=== PATIENT | male | born 1970 | race Caucasian/White ===

== ENCOUNTER 2020-03-10 15:22 | Emergency (ER) | payer BC, SELFPAY ==
[2020-03-10 15:31] VITALS: BP 100/63; PULSE 60; RESP 16; TEMP 36.5; O2SAT 97
[2020-03-10] MEDS: Bupivacaine 0.5% Pres-Free 30 ML VIAL IJ (16:20)
--- NOTE | 2020-03-10 16:30 | W.ED.GENAD ---
Discharge Plan Disposition Patient Disposition: HOME Condition: Good Discharge Details Chief Complaint: Orthopedic Clinical Impression: Crushing injury of left little finger, initial encounter Primary Care Provider: Stephanie,Local ED Provider: Martin Case and New Rx's Prescriptions: New cephalexin 500 mg tablet 500 mg PO Q8H Qty: 20 RF: 0 Continued cetirizine [Zyrtec] 10 mg tablet 10 mg PO DAILY RF: 0 omeprazole 40 MG capsule,delayed release(DR/EC) 40 mg PO DAILY RF: 0 Discharge Instructions Additional Instructions: Leave this dressing in place for 2 days. Keep hand elevated. Alternate acetaminophen with ibuprofen for pain. Take antibiotic as directed. In 2 days remove dressing. You may need to soak the finger to get the Gelfoam off. Be careful not to disrupt clot or healing. Redress and keep dry and clean. You will need follow-up with orthopedics or plastics for definitive repair of finger. Watch for signs of infection and return to ED if you notice increasing pain, swelling, redness. Referrals: [facility] [Provider Group] Discharge Data Discharge Date/Time-TO BE ENTERED AT DEPARTURE: 03/10/20 19:20 Medical Decision Making A digital nerve block had been performed by nurse practitioner Ngoc prior to my seeing the patient and being sent to radiology. At the time of my evaluation nerve block has completely set and he has no pain. He has normal range of motion. His injury is involving only the tip of the little finger. X-ray confirms a comminuted fracture of the tuft. No other fractures noted. Wound was irrigated with copious amounts of saline by me. Some debridement carried out. No bone exposure. After debridement there was some significant bleeding that was not easily controlled with pressure. Bovie was used to cauterize the tip. Gelfoam applied. Xeroform dressing applied. No bleeding noted. Patient started on cephalexin. He is to keep the dressing in place for the next 2 days. He will need follow-up with Ortho or plastics for reevaluation and consideration of flap although given no bony exposure may be just as well to let granulate in and heal. Patient is from [place]. He is given [facility] orthopedic information for follow-up if he decides to stay in the area longer than he had planned. Otherwise will need to find follow-up in [place] when he returns home. HPI General Mode of arrival: ambulatory. Date/Time Provider Initiated Documentation: 03/10/20 15:59. Limitations to Documentation: no limitations. Information obtained by: patient and RN notes reviewed. HPI Narrative: Patient presents to ED with left little finger injury. Patient is right-hand dominant. Patient was splitting wood with wood splitter. He is not exactly sure what happened but it jammed and at some point the tip of his little finger was crushed. He denies other injury. Bleeding is controlled. Tetanus is up-to-date. Presents to ED for evaluation. Related Data Home Medications Medication Instructions Recorded Confirmed omeprazole 40 mg PO DAILY 08/02/17 03/10/20 cephalexin 500 mg PO Q8H #20 tab 03/10/20 cetirizine [Zyrtec] 10 mg PO DAILY 03/10/20 03/10/20 Previous Rx's Medication Instructions Recorded cephalexin 500 mg PO Q8H #20 tab 03/10/20 Allergies Allergy/AdvReac Type Severity Reaction Status Date / Time egg AdvReac Mild Unverified 03/10/20 15:37 General Stated Complaint: Orthopedic LIBERTY: 3 Review of Systems Constitutional Constitutional: Denies fever(s) Cardiovascular Cardiovascular: Denies dyspnea Respiratory Respiratory: Denies cough and Denies dyspnea PFSH Medical History GERD (gastroesophageal reflux disease) (Chronic) Surgical History S/P appendectomy (Acute) Social History Smoking/Tobacco Use Status: Never Alcohol Intake: current Alcohol Intake frequency: holidays/special occasions only Drug use: Never Do you feel safe at home: Yes Do you feel safe in your relationship?: Yes Exam Const General: cooperative, comfortable and no acute distress Orientation: alert and oriented x3 HENMT Head: normocephalic and atraumatic Neck Neck: trachea midline and supple Resp Effort & Inspection: normal respiratory effort Extrem Other: Left little finger with amputation of the very tip. Nail almost completely gone except for the very proximal piece which is still within the cuticle. Nailbed somewhat disrupted. Course Vital Signs Vital signs: Vital Signs Temperature 97.7 F 03/10/20 15:31 Pulse 60 03/10/20 15:31 Respiratory Rate 16 03/10/20 15:31 Blood Pressure 100/63 03/10/20 15:31 Pulse Oximetry 97 03/10/20 15:31 Temperature 97.7 F 03/10/20 15:31 Temperature Source Temporal Artery Scan 03/10/20 15:31 Pulse 60 03/10/20 15:31 Respiratory Rate 16 03/10/20 15:31 Respiratory Effort Non-Labored 03/10/20 15:36 Blood Pressure 100/63 03/10/20 15:31 Blood Pressure Position Sitting 03/10/20 15:31 Pulse Oximetry 97 03/10/20 15:31 Oxygen Delivery Method Room Air 03/10/20 15:31 Oxygen Flow Rate 0 03/10/20 15:31 Pain Level 4 03/10/20 15:40
--- NOTE | 2020-03-10 16:31 | W.ED.PROC ---
Date of service: 03/10/20 Time of Service: 16:31 Procedures Nerve Block Nerve Block 1: Time out performed: No Local Anesthetic: Lidocaine 1% and Bupivicaine 0.5% Amount of anesthesia used (mL): 5 Side: left Nerve Blocks: digital (ring block base of 5th finger)
--- NOTE | 2020-03-10 17:20 | DI.RAD_ITS ---
EXAM: XR FINGER LT LITTLE CLINICAL HISTORY: Crush injury TECHNIQUE: COMPARISON: No exams were available for comparison FINDINGS: Three views were obtained. There is a comminuted moderately displaced fracture of the tuft of distal phalanx of the little finger with associated soft tissue defect. No additional fracture seen. IMPRESSION: RADIATION DOSE DELIVERED: Total DLP
--- NOTE | 2020-03-10 17:51 | DI.VRAD_ITS ---
PROCEDURE INFORMATION: Exam: XR Left Finger(s) Exam date and time: 03/10/2020 5:29 PM Age: 49 years old Clinical indication: Other: Crush injury TECHNIQUE: Imaging protocol: XR Left fingers. Views: Minimum 2 views. COMPARISON: No relevant prior studies available. FINDINGS: Bones/joints: There is a comminuted fracture at the tuft of the little finger distal phalanx. No other acutely displaced fractures are appreciated. No dislocation. No aggressive osseous lesions. Soft tissues: Soft tissue laceration at the tip of the little finger. IMPRESSION: Comminuted fracture at the tuft of the little finger distal phalanx with associated soft tissue laceration. Dictated and Authenticated by: Mehrdad Tolentino MD. Ordering:KARINA Smith MD
[2020-03-10] MEDS: Gelatin SPONGE 12-7 MM PKT 1 EACH TP (19:00)
== END 2020-03-10 19:20 | disposition home or self-care (01) ==
PROVIDERS: Emergency Provider Emergency Medicine
DX: S67.197A Crushing injury of left little finger, initial encounter (principal); S62.637A Displaced fracture of distal phalanx of left little finger, initial encounter for closed fracture; W31.89XA Contact with other specified machinery, initial encounter
CPT/HCPCS: 26750; 73140

== ENCOUNTER 2020-05-16 10:17 | Emergency (ER) | payer BC, SELFPAY ==
[2020-05-16 10:21] VITALS: BP 134/76; PULSE 84; RESP 22; TEMP 37.2; O2SAT 98
--- NOTE | 2020-05-16 10:30 | DI.RAD_ITS ---
EXAM: XR PORTABLE CHEST AP CLINICAL HISTORY: Fever, PUI TECHNIQUE: COMPARISON: No exams were available for comparison FINDINGS: Heart is not enlarged. There are patchy areas of increased intrapulmonary radiodensity in the right mid lung to right lung base. Left lung is grossly clear. Upper right lung zone appears clear. No p leural effusion seen on this frontal film. Slight elevation of the diaphragm noted on the right. IMPRESSION: Consistent with right sided pneumonia. Appropriate follow-up films requested. RADIATION DOSE DELIVERED: Total DLP
--- NOTE | 2020-05-16 10:38 | ED.GENADUL_ITS ---
Discharge Plan Disposition Patient Disposition: HOME Condition: Stable Discharge Details Clinical Impression: Community acquired pneumonia of right lower lobe of lung, Leukopenia Primary Care Provider: StephanieLocal ED Provider: Sarah Grossman Home Meds and New Rx's Prescriptions: New doxycycline hyclate 100 mg capsule 100 mg PO BID 7 Days Qty: 14 RF: 0 Continued cetirizine [Zyrtec] 10 mg tablet 10 mg PO DAILY RF: 0 omeprazole 40 MG capsule,delayed release(DR/EC) 40 mg PO DAILY RF: 0 No Action cephalexin 500 mg tablet 500 mg PO Q8H Qty: 20 RF: 0 Discharge Instructions Instructions: Community Acquired Pneumonia (ED) Additional Instructions: Follow up with primary care provider in 3-5 days. Return to ED sooner if any worsening or concerns. Increase oral fluids. Please take Tylenol or Ibuprofen with food every 4-6 hours as needed for pain and swelling. Take doxycycline as prescribed twice a day. Your Covid test and Lyme panel is pending at this time. Doxycycline will treat Lyme disease if this comes back positive as well. Continue to quarantine until Covid result is negative. Chest x-ray shows possible right lower lobe pneumonia. Your white blood cell count is low, the level was 2.4, you do need to follow-up with primary care regarding this and have it rechecked. This could be due to a viral illness but needs to be looked into further. Stand Alone Forms: PENDING COVID-19 TESTING Medical Decision Making 50-year-old male presents to the ED with flulike symptoms for approximately 9 days. He is from [place], he was tested a week ago on Thursday and again on Thursday for Covid which were both negative. He does report having contact with a friend who was tested positive for Covid. He reports myalgias, fever, chills, diarrhea and loose stools for approximately 9 days. He is here concerned because he does not feel any better. He denies any vomiting, chest pain or difficulty breathing. He did take Advil at 3:00 this morning. He has tried [id number] cold and flu medications with little to no help. EXAM: XR PORTABLE CHEST AP CLINICAL HISTORY: Fever, PUI TECHNIQUE: COMPARISON: No exams were available for comparison FINDINGS: Heart is not enlarged. There are patchy areas of increased intrapulmonary radiodensity in the right mid lung to right lung base. Left lung is grossly clear. Upper right lung zone appears clear. No pleural effusion seen on this frontal film. Slight elevation of the diaphragm noted on the right. IMPRESSION: Consistent with right sided pneumonia. Appropriate follow-up films requested. Discussed lab results and x-ray results with patient who verbalizes understanding. Discussed continue quarantine. Pending Covid test. CBC is largely unremarkable white blood cell count 2.4, platelet count 118, sodium is 135, potassium 4.1, BUN 14, creatinine 1.19, GFR greater than 60. I will discuss his white blood cell count with patient and encouraged follow-up with PCP. Will give first dose of antibiotics here in department will give doxycycline to cover for pneumonia and patient's concern for Lyme disease. HPI General Mode of arrival: ambulatory . Date/Time Provider Initiated Documentation: 05/16/20 10:17 . Limitations to Documentation: no limitations . Information obtained by: patient . HPI Narrative: 50-year-old male presents to the ED with flulike symptoms for approximately 9 days. He is from [place], he was tested a week ago on Thursday and again on Thursday for Covid which were both negative. He does report having contact with a friend who was tested positive for Covid. He reports myalgias, fever, chills, diarrhea and loose stools for approximately 9 days. He is here concerned because he does not feel any better. He denies any vomiting, chest pain or difficulty breathing. He did take Advil at 3:00 this morning. He has tried [id number] cold and flu medications with little to no help. Related Data Home Medications Medication Instructions Recorded Confirmed omeprazole 40 mg PO DAILY 08/02/17 05/16/20 cephalexin 500 mg PO Q8H #20 tab 03/10/20 05/16/20 cetirizine [Zyrtec] 10 mg PO DAILY 03/10/20 05/16/20 doxycycline hyclate 100 mg PO BID 7 Days #14 cap 05/16/20 Previous Rx's Medication Instructions Recorded cephalexin 500 mg PO Q8H #20 tab 03/10/20 doxycycline hyclate 100 mg PO BID 7 Days #14 cap 05/16/20 Allergies Allergy/AdvReac Type Severity Reaction Status Date / Time egg AdvReac Mild Unverified 05/16/20 10:28 General Stated Complaint: Fever LIBERTY: 3 Review of Systems Narrative: Constitutional: Negative for weight loss, alert and oriented, well groomed, normal body habitus, appears comfortable. Positive myalgias, chills, fatigue and fever. HEENT: Denies trauma, headaches, blurry vision, nasal discharge, sore throat, trouble swallowing. Chest: Denies chest pain, palpitations, irregular rhythm, hypertension. Respiratory: Denies Shortness of breath, cough, hemoptysis. GI: Denies abdominal pain, nausea, vomiting, constipation. Positive diarrhea. : Denies dysuria, hematuria, flank pain, rectal bleeding. Neuro: Denies dizziness, blurry vision, weakness, syncope, headache or facial numbness. Hematologic: Denies easy bruising, intolerance to heat or cold, hair loss. [facility] Medical History GERD (gastroesophageal reflux disease) Surgical History S/P appendectomy Social History Smoking/Tobacco Use Status: Never Smoking risk assessment performed?: Yes Alcohol Intake: current Alcohol Intake frequency: holidays/special occasions only Drug use: Never Substance use type: does not use Do you feel safe at home: Yes Do you feel safe in your relationship?: Yes Exam Narrative Exam Narrative: Constitutional: Alert and oriented x3. Appears stated age. Normal body habitus. Head: Normocephalic, no trauma. Eyes: Pupils PERRLA, Red reflex noted, EOM's intact. Eyelids symmetrical without lesions, discharge, or swelling. ENT: Bilateral TM's WNL, External ear normal to inspection, no mastoid TTP, swelling, or erythema, Nasal turbinates WNL, no nasal discharge. Normal dentition, Posterior pharynx WNL, no exudate. Chest: RRR, Normal S1, S2, distal pulses intact. Resp: Lungs clear to auscultation bilaterally, no wheezes, rales, or rhonchi. Musculoskeletal: Normal gait, 5/5 strength to all four extremities. Skin: No suspicious rashes or lesions. Capillary refill less than 2 sec. Neurologic: Cranial nerves II-XII intact. Alert and oriented x 3. DTR's intact. Hematologic/Lymphatic: No ecchymosis, no lymphadenopathy. Course Vital Signs Vital signs: Vital Signs Temperature 37.2 C 05/16/20 10:21 Pulse 84 05/16/20 10:21 Respiratory Rate 22 05/16/20 10:21 Blood Pressure 134/76 05/16/20 10:21 Pulse Oximetry 98 05/16/20 10:21 Temperature 37.2 C 05/16/20 10:21 Temperature Source Temporal Artery Scan 05/16/20 10:21 Pulse 84 05/16/20 10:21 Respiratory Rate 22 05/16/20 10:21 Respiratory Effort Non-Labored 05/16/20 10:26 Blood Pressure 134/76 05/16/20 10:21 Blood Pressure Position Supine 05/16/20 10:21 Pulse Oximetry 98 05/16/20 10:21 Oxygen Delivery Method Room Air 05/16/20 10:21 Oxygen Flow Rate 0 05/16/20 10:21 Pain Level 3 05/16/20 10:21
[2020-05-16 11:10] LABS: Abs Immature Grans 0.02 10^3/uL (0.0-0.06); Absolute Lymphocyte Count 0.71 10^3/uL (1.2-3.4); Absolute Monocyte Count 0.26 10^3/uL (0.1-0.8); Absolute Neutrophil Count 1.42 10^3/uL (1.2-6.7); HCT 46.7 % (40.0-50.0); HGB 15.7 g/dL (13.5-17.5); Immature Grans % 0.8; Lymphocytes % 29.5; MCH 28.4 pg (27.0-33.0); MCHC 33.6 % (32.0-36.0); MCV 84.4 fL (80-95); MPV 10.8 fL (8.0-11.0); Monocytes % 10.8; Neutrophils % 58.9; Nucleated RBC 0 %; Platelet Count 118 10^3/uL (130-400); RBC 5.53 10^6/uL (4.36-5.78); RDW 12.5 % (11.8-14.1); RDW-SD 38.5 fL; WBC 2.41 10^3/uL (4.4-10.8)
[2020-05-16 11:23] LABS: ALT 57 U/L (16-63); AST 40 U/L (15-37); Albumin 3.8 g/dL (3.4-5.0); Alkaline Phosphatase 59 U/L (46-116); Anion Gap 6.4 mmol/L (3-11); BUN 14 mg/dL (7-18); Bilirubin, Total 0.5 mg/dL (0.2-1.0); CO2 27.6 mmol/L (21.0-32.0); CREATININE 1.19 mg/dL (0.70-1.30); Calcium 8.4 mg/dL (8.5-10.1); Chloride 101 mmol/L (98-107); Glucose 103 mg/dL (74-106); Potassium 4.1 mmol/L (3.5-5.1); Sodium 135 mmol/L (136-145); Total Protein 7.5 g/dL (6.4-8.2)
[2020-05-16] MEDS: Doxycycline Hyclate 100 MG CAP PO ×3 (13:01→13:04)
[2020-05-18 03:02] LABS: Anaplasma phagocytophilum Negative (Negative); B. miyamotoi PCR Negative (Negative); Babesia divergens/MO-1 Negative (Negative); Babesia duncani Negative (Negative); Babesia microti Negative (Negative); Ehrlichia chaffeensis Negative (Negative); Ehrlichia ewingii/canis Negative (Negative); Ehrlichia muris eauclairensis Negative (Negative)
[2020-05-19 02:29] LABS: Patient Race White; SARS-CoV-2 RNA Undetected (Undetected); SARS-CoV-2 Specimen Source Nasopharynx
[2020-05-23 09:49] LABS: Lyme Ab w Rflx to Lyme Confirm Negative (Negative)
== END 2020-05-16 13:03 | disposition home or self-care (01) ==
PROVIDERS: Emergency Provider Registered Nurse Emergency
DX: J18.9 Pneumonia, unspecified organism (principal); D72.819 Decreased white blood cell count, unspecified; Z20.828 Contact with and (suspected) exposure to other viral communicable diseases
CPT/HCPCS: 36415; 80053; 87449; 87798; 99284; U0003; 71045; 85025; 86618

== ENCOUNTER 2020-05-19 10:16 | Emergency (ER) | payer BC, SELFPAY ==
[2020-05-19] VITALS (45 sets, daily range): BP systolic 99–124; BP diastolic 51–79; PULSE 59–87; RESP 0–37; TEMP 36.4; O2SAT 94–100
--- NOTE | 2020-05-19 10:18 | ED.GENADUL_ITS ---
Discharge Plan Disposition Patient Disposition: HOME Condition: Improving Discharge Details Clinical Impression: Community acquired pneumonia of right lower lobe of lung, Dehydration, Viral illness Primary Care Provider: Stephanie,Local ED Provider: Helen Holder Home Meds and New Rx's Prescriptions: New ondansetron 4 mg tablet,disintegrating 4 mg PO Q6H PRN (Reason: nausea and vomiting) Qty: 10 RF: 0 Continued cetirizine [Zyrtec] 10 mg tablet 10 mg PO DAILY RF: 0 acetaminophen [Acetaminophen Extra Strength] 500 mg Tablet 1,500 mg PO Q6H PRNRF: 0 ibuprofen [IBU-200] 200 mg Tablet 600 mg PO Q6H PRNRF: 0 omeprazole 40 MG capsule,delayed release(DR/EC) 40 mg PO DAILY RF: 0 doxycycline hyclate 100 mg capsule 100 mg PO BID 7 Days Qty: 14 RF: 0 Discharge Instructions Instructions: Dehydration (ED), Viral Syndrome (ED), Pneumonia (ED) Additional Instructions: Please continue to encourage water intake. Tylenol and/or ibuprofen as needed for discomfort or fevers. You may use Zofran as prescribed for any recurrence of your nausea or vomiting. Our care management team will reach out to you to discuss follow-up with primary care. If you develop difficulty breathing, shortness of breath, rash, inability stay hydrated or other new/worsening symptoms please seek care urgently once again. Please continue with your doxycycline as a safety prescribed. Please continue to quarantine for Covid testing is pending. Discharge Data Discharge Date/Time-TO BE ENTERED AT DEPARTURE: 05/19/20 14:43 Medical Decision Making Patient is a pleasant 50 year old male presenting today with c/c of persistent flulike illness. Patient was seen here on 05/16/2020. At that time, patient was diagnosed with right lower lobe pneumonia and was started on doxycycline. He states that overall his cough has improved but he continues to have general malaise, fevers, exertional shortness of breath. He does not experience shortness of breath however and states that this is more fatigue than true shortness of breath. He denies any chest pain. Patient did come up recently from [place] where he reports he had multiple negative Covid test. Reports that as he has sickly relatives in his home he left and came to his camp in this area to try to keep him from being exposed. He states he was around people outside that did have COVID-19. He denies any abdominal pain. On exam, patient appears fatigued. VS WNL. Appears well hydrated. Normal cardiac and pulmonary exam. Abdoen benign. No LE edema or calf tenderness. Vital signs are within normal limits. He is afebrile here. Resting comfortably. Plan to obtain baseline labs and repeat chest x-ray. As his shortness of breath and cough have improved since being on the doxycycline, I do not feel that CT of his chest is appropriate at this point. His COVID-19 testing is still pending as is his tick and Lyme panel. Labs are reviewed. Patient has no leukocytosis. Stable H&H. Likely slightly elevated 2.0. Sodium is low at 132. His creatinine is elevated from usual last 1.34. AST and ALT are both minimally elevated. Urinalysis without evidence of infection. Patient reports feeling improved. He is hydrating orally at this time. Chest x-ray reviewed by radiology: FINDINGS: Lungs: Lungs volume is low, right greater than left. There has been slight interval improvement of airspace opacity in the right lower lung. There is slight prominence of bilateral reticular interstitial thickening. There is a linear opacity in the right middle lung lobe which could reflect atelectasis. Pleural space: Unremarkable. No pleural effusion. No pneumothorax. Heart/Mediastinum: Heart is within normal limits in size. Bones/joints: No acute abnormality in osseous structures. IMPRESSION: 1. Mild improvement of airspace opacity in right lower lung, likely infectious infiltrate or pneumonia. 2. There is however interval increase in reticular interstitial opacities in bilateral lungs, right greater than left and could reflect pulmonary edema or less likely infiltrate. 3. Interval presence of right mid subsegmental atelectasis. 4. Stable low lungs volume, right greater than left. I discussed the findings with the patient. I advised that his bacterial pneumonia appears to be improving. However, this does have any more concern for potential Covid 19. Again, this testing result is pending. Patient does not clinically correlate with pulmonary edema nor does he have any cardiac history. Patient continues hemodynamically stable. He and I discussed inpatient versus outpatient management. At this time, he does feel ready to be able to be discharged home. He is able to return with any new or worsening symptoms. As he is staying in the area for foreseeable future, I will request that he has follow-up with primary care provider. Strict return precautions were discussed. All his questions and concerns were addressed to his agreement plan Patient had reported that he was having nausea that is resolved prior to his coming here. In the event that returns and will prescribe an ODT Zofran for symptomatic management. HPI General Mode of arrival: ambulatory . Date/Time Provider Initiated Documentation: 05/19/20 10:18 . Limitations to Documentation: no limitations . Information obtained by: patient and RN notes reviewed . HPI Narrative: Patient is a very pleasant 50-year-old gentleman presenting today with chief complaint of persistent illness symptoms. Patient was evaluated for this home on 05/16/20 the patient was diagnosed with a pneumonia. Patient was started on doxycycline. Patient does report that he has had exposure to Covid but states he was outside and socially distanced. He has been treated multiple times but currently he reports all negative. He does currently have a pending Covid test. States that despite being on antibiotics she continues to have fevers, rigors, body aches, cough, shortness of breath, nausea, diarrhea. Denies any abdominal pain. Denies any chest pain. Related Data Home Medications Medication Instructions Recorded Confirmed omeprazole 40 mg PO DAILY 08/02/17 05/19/20 cetirizine [Zyrtec] 10 mg PO DAILY 03/10/20 05/19/20 doxycycline hyclate 100 mg PO BID 7 Days #14 cap 05/16/20 05/19/20 acetaminophen [Acetaminophen Extra 1,500 mg PO Q6H PRN 05/19/20 05/19/20 Strength] ibuprofen [IBU-200] 600 mg PO Q6H PRN 05/19/20 05/19/20 ondansetron 4 mg PO Q6H PRN #10 tab 05/19/20 Previous Rx's Medication Instructions Recorded doxycycline hyclate 100 mg PO BID 7 Days #14 cap 05/16/20 ondansetron 4 mg PO Q6H PRN #10 tab 05/19/20 Allergies Allergy/AdvReac Type Severity Reaction Status Date / Time egg AdvReac Mild Unverified 05/19/20 10:27 General LIBERTY: 3 Review of Systems Constitutional Constitutional: Reports as per HPI, Reports chills, Reports fatigue, Reports fever(s), Denies headache(s), Reports malaise and Reports poor appetite Eyes Eyes: Reports as per HPI, Denies eye discharge and Denies irritation ENT Ears, Nose, Mouth, and Throat: Reports as per HPI and Denies headache(s) Cardiovascular Cardiovascular: Reports as per HPI, Denies chest pain, Denies chest pain with activity, Denies leg edema, Denies radiating jaw, neck or arm pain, Denies palpitations and Reports dyspnea Respiratory Respiratory: Reports as per HPI, Denies change in phlegm color, Denies chest congestion, Reports cough (reports cough has been improving), Denies hemoptysis, Denies pain on inspiration, Denies pain with cough, Reports dyspnea, Denies stridor and Denies wheezing Gastrointestinal Gastrointestinal: Reports as per HPI, Denies abdominal pain, Denies change in bowel habits, Denies nausea and Denies vomiting Integumentary/Breasts Skin/Breast: Reports as per HPI and Denies rash Neurologic Neurologic: Reports as per HPI and Denies headache(s) Endocrine Endocrine: Reports fatigue and Denies palpitations Allergic/Immunologic Allergic/Immunologic: Denies wheezing [facility] Medical History GERD (gastroesophageal reflux disease) Surgical History S/P appendectomy Social History Smoking/Tobacco Use Status: Never Smoking risk assessment performed?: Yes Alcohol Intake: current Alcohol Intake frequency: holidays/special occasions only Drug use: Never Substance use type: does not use Do you feel safe at home: Yes Do you feel safe in your relationship?: Yes Exam Const General: cooperative, comfortable, no acute distress, well developed, well groomed and ill appearing acutely Nutritional Appearance: well nourished and overweight Orientation: alert and awake [facility] Head: normal to inspection, normocephalic and atraumatic Ears: hearing grossly normal bilaterally, external ears normal and TM's normal bilaterally General nose exam: external nose normal and nares normal Face and sinus: normal facial exam, sinuses nontender and face symmetric Mouth: oral mucosae normal, lip normal, tongue normal, oropharynx normal and mucous membranes dry (looks dry) Teeth and gingiva: dentition normal Throat: posterior oropharynx normal, tonsils normal and uvula midline Eyes General: appearance normal, both eyes and all related structures Neck Neck: normal visual inspection, full ROM, no lymphadenopathy and no meningeal signs Resp Effort & Inspection: normal respiratory effort, able to speak in complete sentences and no respiratory distress Auscultation: clear to auscultation bilaterally, no rales, no rhonchi and no wheezes Cardio Rate: regular rate Rhythm: regular rhythm Heart Sounds: S1 normal and S2 normal GI Inspection: normal to inspection and no visible herniation Palpation: soft, not rigid and nontender Percussion: normal to percussion Auscultation: normal bowel sounds Skin General skin exam: no rashes or lesions noted Neuro General: patient alert and patient awake Cognition: normal cognition Speech: speech normal Gait: normal gait Psych Appearance: grossly normal and well kempt Mental Status: mental status grossly normal Speech and Movement: speech and movement normal
--- NOTE | 2020-05-19 10:30 | RT.EKG_ITS ---
APPROVED REPORT Exam: Resting ECG Patient Location: E HR:64 bpm ECG Measurements Heart Rate 64 AXIS MT 166 P 25 QRSd 97 QRS 9 QT 424 T 57 QTc 437 Conclusion Sinus rhythm...normal P axis, V-rate 60- 99
--- NOTE | 2020-05-19 10:45 | DI.RAD_ITS ---
EXAM: XR PORTABLE CHEST AP CLINICAL HISTORY: cough, fever TECHNIQUE: 2D digital imaging was performed. COMPARISON: CR XR PORTABLE CHEST AP from 05/16/2020 FINDINGS: MEDIASTINUM: Normal. HEART: Normal. PULMONARY VASCULATURE: Normal. LUNGS: Interval improvement in the opacity in the right lung base. Interval development of a linear opacity in the right mid lung which may represent atelectasis. Persistent low lung volumes. PLEURAL SPACE: No pleural effusion or pneumothorax. BONE:Within normal limits for the patient's age. OTHER FINDINGS:Normal. IMPRESSION: 1. Low lung volumes. 2. Improvement in the opacity in the right lung base. 3. Development of a linear infiltrate in the right mid lung which may represent atelectasis. DATA REPOSITORY: RADIATION DOSE DELIVERED:
[2020-05-19] MEDS: Lactated Ringers 1,000 ML 1000 ML IV ×2 (10:55→12:54)
[2020-05-19 11:28] LABS: Bilirubin Negative (Negative); Blood Trace-intact (Negative); Clarity Clear (Clear); Glucose Negative (Negative); Ketones Trace mg/dL (Negative); Leukocyte Esterase Negative (Negative); Nitrite Negative (Negative); Urobilinogen 0.2 EU/dL (Up TO 0.2); pH 6.5 (5-8)
[2020-05-19 11:33] LABS: RBC 0-2 HPF (0-2)
[2020-05-19 11:34] LABS: Bacteria Few HPF (Negative); C & S Indicated? Yes; Casts Negative LPF (Negative); Crystals Negative HPF (Negative); Epithelial Cells Negative HPF (Negative); Mucus Trace (Negative)
[2020-05-19 11:37] LABS: ALT 67 U/L (16-63); AST 39 U/L (15-37); Albumin 3.6 g/dL (3.4-5.0); Alkaline Phosphatase 64 U/L (46-116); Anion Gap 11.1 mmol/L (3-11); BUN 16 mg/dL (7-18); Bilirubin, Total 0.9 mg/dL (0.2-1.0); CO2 23.9 mmol/L (21.0-32.0); CREATININE 1.34 mg/dL (0.70-1.30); Calcium 8.5 mg/dL (8.5-10.1); Chloride 97 mmol/L (98-107); Estimated GFR 56.66 (mL/min/1.73m2); Glucose 112 mg/dL (74-106); Potassium 3.6 mmol/L (3.5-5.1); Sodium 132 mmol/L (136-145); Total Protein 7.6 g/dL (6.4-8.2)
--- NOTE | 2020-05-19 12:22 | DI.VRAD_ITS ---
PROCEDURE INFORMATION: Exam: XR Chest, 1 View Exam date and time: 05/19/2020 11:54 AM Age: 50 years old Clinical indication: Other: Cough, fever TECHNIQUE: Imaging protocol: XR of the chest Views: 1 view. COMPARISON: CR XR PORTABLE CHEST AP 05/16/2020 11:44 AM FINDINGS: Lungs: Lungs volume is low, right greater than left. There has been slight interval improvement of airspace opacity in the right lower lung. There is slight prominence of bilateral reticular interstitial thickening. There is a linear opacity in the right middle lung lobe which could reflect atelectasis. Pleural space: Unremarkable. No pleural effusion. No pneumothorax. Heart/Mediastinum: Heart is within normal limits in size. Bones/joints: No acute abnormality in osseous structures. IMPRESSION: 1. Mild improvement of airspace opacity in right lower lung, likely infectious infiltrate or pneumonia. 2. There is however interval increase in reticular interstitial opacities in bilateral lungs, right greater than left and could reflect pulmonary edema or less likely infiltrate. 3. Interval presence of right mid subsegmental atelectasis. 4. Stable low lungs volume, right greater than left. Dictated and Authenticated by: Lucien Greer MD. Ordering:JENIFFER Cervantes MD
[2020-05-19 12:55] LABS: Abs Immature Grans 0.02 10^3/uL (0.0-0.06); Absolute Lymphocyte Count 0.96 10^3/uL (1.2-3.4); Absolute Monocyte Count 0.37 10^3/uL (0.1-0.8); Absolute Neutrophil Count 4.15 10^3/uL (1.2-6.7); HCT 40.8 % (40.0-50.0); Immature Grans % 0.4; Lymphocytes % 17.5; MCH 28.2 pg (27.0-33.0); MCHC 34.3 % (32.0-36.0); MCV 82.3 fL (80-95); MPV 11.2 fL (8.0-11.0); Monocytes % 6.7; Neutrophils % 75.4; Nucleated RBC 0 %; Platelet Count 146 10^3/uL (130-400); RBC 4.96 10^6/uL (4.36-5.78); RDW 12.5 % (11.8-14.1); RDW-SD 37.6 fL
[2020-05-19 13:37] LABS: Lactate 1.3 mmol/L (0.6-1.4)
[2020-05-19 13:47] LABS: Anion Gap 7.7 mmol/L (3-11); BUN 14 mg/dL (7-18); CO2 25.3 mmol/L (21.0-32.0); CREATININE 1.15 mg/dL (0.70-1.30); Calcium 7.9 mg/dL (8.5-10.1); Chloride 102 mmol/L (98-107); Glucose 106 mg/dL (74-106); Potassium 3.9 mmol/L (3.5-5.1); Sodium 135 mmol/L (136-145)
--- NOTE | 2020-05-19 14:17 | NUR.NOTE ---
Nursing Note: Referral given to Care Management for respiratory illness and establish care by end of week. Lisa Pagan
== END 2020-05-19 14:43 | disposition home or self-care (01) ==
PROVIDERS: Emergency Provider Physician Assistant
DX: J18.9 Pneumonia, unspecified organism (principal); E86.0 Dehydration; B34.9 Viral infection, unspecified
CPT/HCPCS: 36415; 80048; 80053; 87040; 93005; 96360; 96361; 99284; 71045; 81003; 81015; 83605; 85025; 87086; 93010